=== PATIENT | male | born 1945 | race Caucasian/White ===

== ENCOUNTER 2016-05-28 23:54 | Emergency (ER) | payer MEDICARE ==
[2016-05-29] MEDS ORDERED: HYDROcodone/ACETAMIN 5-325 MG* 1 TAB PO ONE (01:58)
[2016-05-29 03:35] VITALS: BP 133/79
--- NOTE | 2016-05-29 07:56 | ED ---
Skin Complaint - HPI Summary HPI Summary: Patient arrives to ED with concern over hemorrhoids and strange blue line midline in between his scrotal sac. He first noticed it today, became concerned , and came into ED immediately. He is complaining of pain around the anus and has a history of internal and external hemorrhoids. He states today he used a suppository and checked for moles d/t skin CA history. As he was examining his scrotum, he noticed the blue line which was not painful or raised and also erythema around the anus. He states he was unable to see if there were any hemorrhoids, but feels there is a tear. He states he was concerned with a blood poisoning. He is also c/o pain not well controlled with his topical medication. He uses dulcolax daily and is trying to increase his fiber intake. He endorses minimal blood upon wiping. - History of Current Complaint Chief Complaint: EDRectalPain Time Seen by Provider: 05/29/16 01:57 Stated Complaint: RECTAL PAIN Hx Obtained From: Patient Onset/Duration: Started Hours Ago Timing: Constant Onset Severity: Mild Current Severity: Mild Pain Intensity: 5 Pain Scale Used: 0-10 Numeric Skin Location: Discrete - anal region Aggravating Symptom(s): Nothing Alleviating Symptom(s): Other: - anosol cream Associated Signs & Symptoms: Bruising - small blue line extending from scrotum to anus Related History: Extremes of Age - Allergy/Home Medications Allergies/Adverse Reactions: Allergies Allergy/AdvReac Type Severity Reaction Status Date / Time Doxycycline Allergy Headache Verified 01/21/16 14:42 Penicillins Allergy Anaphylatic Verified 01/21/16 14:42 Shock PMH/Surg Hx/FS Hx/Imm Hx Previously Healthy: Yes Endocrine/Hematology History: Denies: Hx Diabetes Cardiovascular History: Reports: Hx Hypertension Denies: Hx Pacemaker/ICD GI History: Reports: Hx Gastroesophageal Reflux Disease History: Reports: Hx Benign Prostatic Hyperplasia Denies: Hx Renal Disease Musculoskeletal History: Reports: Hx Arthritis, Hx Rheumatoid Arthritis Sensory History: Reports: Hx Contacts or Glasses, Hx Hearing Problem Denies: Hx Hearing Aid Opthamlomology History: Reports: Hx Contacts or Glasses Psychiatric History: Reports: Hx Panic Disorder - Surgical History Surgery Procedure, Year, and Place: CHOLECYSTECTOMY. 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 Substance Use Type: Reports: None Hx Tobacco Use: No Smoking Status (MU): Never Smoked Tobacco Review of Systems Constitutional: Negative Cardiovascular: Negative Respiratory: Negative Positive: no symptoms reported, see HPI Musculoskeletal: Negative Positive: Bruising - anus Neurological: Negative Psychological: Normal All Other Systems Reviewed And Are Negative: Yes Physical Exam Triage Information Reviewed: Yes Vital Signs On Initial Exam: Initial Vitals Temp Pulse Resp BP Pulse Ox 98.4 F 81 18 125/86 97 05/29/16 00:04 05/29/16 00:04 05/29/16 00:04 05/29/16 00:04 05/29/16 00:04 Vital Signs Reviewed: Yes Appearance: Positive: Well-Appearing, Well-Nourished Skin: Positive: Warm, Skin Color Reflects Adequate Perfusion Head/Face: Positive: Normal Head/Face Inspection Eyes: Positive: EOMI, NAIN, Conjunctiva Clear Neck: Positive: Supple, Nontender Respiratory/Lung Sounds: Positive: Clear to Auscultation, Breath Sounds Present Cardiovascular: Positive: Normal, RRR Male Genital Exam: Positive: normal genitalia, lesions, other - no scrotal tenderness, no tenderness around anus, no external hemorrhoids, slight erythema around anus, no warmth or streaking or tenderness. thin blue streak from mid scrotal sac extending to anus without pain resembling a vein. no varicoceles. no hernia appreciated. normal rectal tone. no lesions or fissures noted. Musculoskeletal: Positive: Normal, Strength/ROM Intact Neurological: Positive: Sensory/Motor Intact, Speech Normal Psychiatric: Positive: Normal AVPU Assessment: Alert Diagnostics - Vital Signs Vital Signs Temp Pulse Resp BP Pulse Ox 05/29/16 02:20 68 16 133/79 05/29/16 00:04 98.4 F 81 18 125/86 97 - Laboratory Lab Statement: Any lab studies that have been ordered have been reviewed, and results considered in the medical decision making process. Course/Dx - Course Course Of Treatment: Patient reassured. No external hemorrhoids seen. Will follow up with PCP. No fever. Pain is localized to anus with no scrotum or penis involvement. Patient agrees with plan to follow up and is OK with discharge stating he just wanted reassurance he did not have anything more serious such as blood poisoning. Patient is afebrile on discharge. Prescription for pain medication sent to pharmacy. - Differential Diagnoses - Skin Complaint Differential Diagnoses: Abscess, Cellulitis, Contact Dermatitis, Other - hemorrhoids - Diagnoses Provider Diagnoses: Hemorrhoid Discharge - Discharge Plan Condition: Stable Disposition: HOME Prescriptions: HYDROcodone/ACETAMIN 5-325 MG* [[place] 5-325 TAB*] 2 tab PO Q6H PRN #20 tab MDD 4 PRN Reason: Pain Patient Education Materials: Hemorrhoids (ED) Referrals: Joel Marcial MD [Primary Care Provider] - Additional Instructions: Follow up with Dr. Marcial. Call office tomorrow. No visible hemorrhoids were visualized on exam If you are feeling more constipated than usual despite the dulcolax, you may try miralax. Drink plenty of water Do not strain as you have a bowel movement Add more fiber to your diet. Continue with the steroid and hemorrhoid cream daily. Ibuprofen 600mg three times daily for pain. For pain not well controlled with ibuprofen, you may use the hydrocodone. Sitz baths (sitting in warm water) will help with discomfort.
== END 2016-05-29 02:15 | disposition home or self-care (01) ==
LOC: ED 23:54
DX: K64.9 Unspecified hemorrhoids (principal); K62.89 Other specified diseases of anus and rectum
CPT/HCPCS: 99282

== ENCOUNTER 2016-08-05 21:36 | Emergency (ER) | payer MEDICARE ==
[2016-08-05] MEDS ORDERED: Levofloxacin TAB* 250 MG PO ONE (23:51)
[2016-08-05] MEDS ORDERED: Acetaminophen TAB* 325 MG PO ONE (23:51)
[2016-08-06 00:11] LABS: Hematocrit 42 % (42-52); Hemoglobin 14.5 g/dl (14.0-18.0); Mean Corpuscular HGB Conc 35 g/dl (31-36); Mean Corpuscular Hemoglobin 30 pg (27-31); Mean Corpuscular Volume 88 fL (80-94); Mean Platelet Volume 7 um3 (7.4-10.4); Red Blood Count 4.78 10^6/ul (4.0-5.4); Red Cell Distribution Width 13 % (10.5-15); White Blood Count 7.9 10^3/ul (3.5-10.8)
[2016-08-06 00:19] LABS: Albumin 3.6 g/dL (3.2-5.2); BUN/Creatinine Ratio 14.3 (8-20); Calcium 8.1 mg/dL (8.6-10.3); EGFR African American 97.5 (>60); EGFR Non-African American 75.8 (>60); Globulin 2.4 g/dL (2-4); Potassium 3.1 mmol/L (3.5-5.0)
[2016-08-06] MEDS ORDERED: Potassium Chlor TAB* 20 MEQ TAB.ER PO ONE (00:26)
--- NOTE | 2016-08-06 01:00 | ED ---
Apryl Wilder Alok, scribed for Tiffanie Ruiz MD on 08/05/16 at 2327 . Throat Pain/Nasal Congestion - HPI Summary HPI Summary: 71M presents to the ED with sinus pressure and nasal pain for the past few days. Pt states his nasal pain is worse on the right nare. Pt notes epistaxis 3 days ago. Pt notes a right sided head ache and right ear pain. Pt notes subjective fever yesterday for which he took ibuprofen. Pt also notes CP lasting at 1830 which lasted 30 minutes. PMHx includes HTN. - History of Current Complaint Chief Complaint: EDGeneral Time Seen by Provider: 08/05/16 22:46 Hx Obtained From: Patient Onset/Duration: Lasting Days, Still Present Severity: Moderate Associated Signs And Symptoms: Positive: Sinus Discomfort Cough: None - Allergies/Home Medications Allergies/Adverse Reactions: Allergies Allergy/AdvReac Type Severity Reaction Status Date / Time Doxycycline Allergy Headache Verified 08/05/16 21:49 Penicillins Allergy Anaphylatic Verified 08/05/16 21:49 Shock PMH/Surg Hx/FS Hx/Imm Hx Endocrine/Hematology History: Denies: Hx Diabetes Cardiovascular History: Reports: Hx Hypertension Denies: Hx Pacemaker/ICD GI History: Reports: Hx Gastroesophageal Reflux Disease History: Reports: Hx Benign Prostatic Hyperplasia Denies: Hx Renal Disease Musculoskeletal History: Reports: Hx Arthritis, Hx Rheumatoid Arthritis Sensory History: Reports: Hx Contacts or Glasses, Hx Hearing Problem Denies: Hx Hearing Aid Opthamlomology History: Reports: Hx Contacts or Glasses Psychiatric History: Reports: Hx Panic Disorder - Surgical History Surgery Procedure, Year, and Place: CHOLECYSTECTOMY. FATTY TUMORS REMOVED Hx Anesthesia Reactions: No Infectious Disease History: No Infectious Disease History: Denies: Traveled Outside the [place] in Last 30 Days - Family History Known Family History: Positive: Cardiac Disease - Social History Occupation: Retired Alcohol Use: None Alcohol Amount: RECOVERING ALCOHOLIC , NO DRINK IN 20 YEARS Substance Use Type: Reports: None Hx Tobacco Use: No Smoking Status (MU): Never Smoked Tobacco Review of Systems Positive: Fever - subjective Positive: Epistaxis, Ear Ache, Other - sinus pressure Positive: Chest Pain Positive: Headache All Other Systems Reviewed And Are Negative: Yes Physical Exam Triage Information Reviewed: Yes Vital Signs On Initial Exam: Initial Vitals Temp Pulse Resp BP Pulse Ox 97.9 F 63 16 168/79 99 08/05/16 21:40 08/05/16 21:40 08/05/16 21:40 08/05/16 21:40 08/05/16 21:40 Vital Signs Reviewed: Yes Appearance: Positive: Well-Appearing, No Pain Distress Skin: Positive: Warm, Skin Color Reflects Adequate Perfusion, Dry Eyes: Positive: EOMI, NAIN ENT: Positive: Other - Red turbinates inside nare Neck: Positive: Supple, Nontender Respiratory/Lung Sounds: Positive: Clear to Auscultation, Breath Sounds Present. Negative: Rales, Rhonchi, Wheezes Cardiovascular: Positive: RRR, Other - no gallop. Negative: Murmur, Rub Abdomen Description: Positive: Nontender, Soft, Other: - no rebound. Negative: Distended, Guarding Bowel Sounds: Positive: Present Musculoskeletal: Positive: Strength/ROM Intact. Negative: Edema Left, Edema Right Neurological: Positive: Sensory/Motor Intact, Alert, Oriented to Person Place, Time, CN Intact II-III Psychiatric: Positive: Affect/Mood Appropriate Diagnostics - Vital Signs Vital Signs Temp Pulse Resp BP Pulse Ox 08/05/16 22:49 97.1 F 65 16 136/81 97 08/05/16 21:40 97.9 F 63 16 168/79 99 - Laboratory Lab Results: Lab Results 08/05/16 08/05/16 08/05/16 Range/Units 23:55 23:55 23:55 WBC 7.9 (3.5-10.8) 10^3/ul RBC 4.78 (4.0-5.4) 10^6/ul Hgb 14.5 (14.0-18.0) g/dl Hct 42 (42-52) % MCV 88 (80-94) fL MCH 30 (27-31) pg MCHC 35 (31-36) g/dl RDW 13 (10.5-15) % Plt Count 187 (150-450) 10^3/ul MPV 7 L (7.4-10.4) um3 Neut % (Auto) 64.9 (38-83) % Lymph % (Auto) 26.0 (25-47) % Ponce % (Auto) 4.3 (1-9) % Eos % (Auto) 2.5 (0-6) % Baso % (Auto) 2.3 H (0-2) % Absolute Neuts (auto) 5.1 (1.5-7.7) 10^3/ul Absolute Lymphs (auto) 2.1 (1.0-4.8) 10^3/ul Absolute Monos (auto) 0.3 (0-0.8) 10^3/ul Absolute Eos (auto) 0.2 (0-0.6) 10^3/ul Absolute Basos (auto) 0.2 (0-0.2) 10^3/ul Absolute Nucleated RBC 0.01 10^3/ul Nucleated RBC % 0.1 Sodium 137 (133-145) mmol/L Potassium 3.1 L (3.5-5.0) mmol/L Chloride 108 (101-111) mmol/L Carbon Dioxide 21 L (22-32) mmol/L Anion Gap 8 (2-11) mmol/L BUN 14 (6-24) mg/dL Creatinine 0.98 (0.67-1.17) mg/dL Est GFR ( Amer) 97.5 (>60) Est GFR (Non-Af Amer) 75.8 (>60) BUN/Creatinine Ratio 14.3 (8-20) Glucose 100 (70-100) mg/dL Lactic Acid 1.0 (0.5-2.0) mmol/L Calcium 8.1 L (8.6-10.3) mg/dL Total Bilirubin 1.00 (0.2-1.0) mg/dL AST 19 (13-39) U/L ALT 14 (7-52) U/L Alkaline Phosphatase 41 (34-104) U/L Troponin I 0.00 (<0.04) ng/mL Total Protein 6.0 L (6.4-8.9) g/dL Albumin 3.6 (3.2-5.2) g/dL Globulin 2.4 (2-4) g/dL Albumin/Globulin Ratio 1.5 (1-3) Result Diagrams: 08/05/16 23:55 08/05/16 23:55 Lab Statement: Any lab studies that have been ordered have been reviewed, and results considered in the medical decision making process. - Radiology CXR Xray Interpretation: No Acute Changes Radiology Interpretation Completed By: ED Physician - Dr. Ruiz - EKG 3490 Cardiac Rate: NL - 56 bpm EKG Rhythm: Sinus Rhythm EKG Interpretation: inferior Q-waves EENT Course/Dx - Course Course Of Treatment: very sweet 71 yo male who describes nasal drainage that was b/l but stopped on the right after he had a mild bloody nose a few days ago , he dose have sinus tenderness. He is being treated with levaquin for this given his allergies to penicllins and doxy. He also complained of cp that started at 5pm and lasted 30 mins with a normal ekg and normal trop no cp here. - Diagnoses Provider Diagnoses: Chest pain, Sinusitis Discharge - Discharge Plan Condition: Stable Disposition: HOME Prescriptions: Levofloxacin TAB* [Levaquin TAB*] 750 mg PO DAILY #9 tab Patient Education Materials: Chest Pain (ED), Sinusitis (ED) Referrals: Joel Marcial MD [Primary Care Provider] - The documentation as recorded by the Apryl huitron Alok accurately reflects the service I personally performed and the decisions made by me, Tiffanie Ruiz MD.
[2016-08-06 01:34] VITALS: BP 140/80
== END 2016-08-06 01:34 | disposition home or self-care (01) ==
LOC: ED 21:36
DX: J32.9 Chronic sinusitis, unspecified (principal); R07.89 Other chest pain; I10 Essential (primary) hypertension; K21.9 Gastro-esophageal reflux disease without esophagitis; N40.0 Benign prostatic hyperplasia without lower urinary tract symptoms; M06.9 Rheumatoid arthritis, unspecified; Z90.49 Acquired absence of other specified parts of digestive tract; Z88.0 Allergy status to penicillin; Z88.1 Allergy status to other antibiotic agents
CPT/HCPCS: 36415; 80053; 83605; 84484; 85025; 93005; 99282; A9270-GY

== ENCOUNTER 2017-04-22 16:17 | Emergency (ER) | payer MEDICARE ==
[2017-04-22 18:16] LABS: Urine Appearance Clear; Urine Blood 2+ (Negative); Urine Color Straw; Urine Ketones Negative (Negative); Urine Protein Negative (Negative); Urine Specific Gravity 1.002 (1.010-1.030); Urine Urobilinogen Negative (Negative)
--- NOTE | 2017-04-22 19:06 | RAD ---
INDICATION: Right testicular pain. History of right-sided hernia COMPARISON: Testicular sonogram April 01, 2012 TECHNIQUE: Duplex interrogation of the scrotum was performed. FINDINGS: Testicles: The testicles are Normal in size and echogenicity. There is no evidence of testicular mass. There is symmetric flow on Doppler interrogation. There is no evidence of torsion.. The right testis measures 4.3 x 1.8 x 3.7 cm and the left 4.9 x 1.9 x 2.8 cm. There is symmetric flow on Doppler interrogation. Epididymides: There is symmetric flow on Doppler interrogation. The right epididymal head measures 1.2 x 2.0 cm and the left 1.1 x 1.8 cm. There is a right-sided epididymal cyst measuring 1.0 x 0.6 x 1.1 cm. There are 2 left-sided epididymal cyst measuring 0.5 x 0.5 x 0.7 and 0.5 x 0.5 x 0.8 cm Hydroceles: None. Varicoceles: There are left-sided varicoceles. Other: There is right inguinal hernia. IMPRESSION: 1. No evidence of testicular mass or torsion. 2. Bilateral epididymal cysts. 3. Left-sided varicoceles. 4. Right inguinal hernia
--- NOTE | 2017-04-22 19:25 | ED ---
My Wilder Gabriel, scribesther for Katrina Storm MD on 04/22/17 at 1843 . GI/ HPI - HPI Summary HPI Summary: This patient is a 72 year old M presenting to [facility] with a chief complaint of an inguinal hernia that was discovered 2 weeks ago but is worse since yesterday. The patient rates the pain 6/10 in severity. Symptoms alleviated by lying down. Patient reports PRIETO, pain and prickling in the groin. Patient denies vomiting. Pt had a recent prostate infection and hx of BPH. - History of Current Complaint Chief Complaint: EDUrogenitalProblems Time Seen by Provider: 04/22/17 18:02 Stated Complaint: RT SIDE GROIN PAIN Hx Obtained From: Patient Onset/Duration: Started Weeks Ago - 2, Still Present, Worse Since - yesterday Timing: Constant Severity: Moderate Current Severity: Moderate Pain Intensity: 6 Location of Pain: Groin Additional Locations for Males: Scrotum, Testicles - right Associated Signs and Symptoms: Positive: Negative - vomiting, Other: - PRIETO and pain in groin - Allergy/Home Medications Allergies/Adverse Reactions: Allergies Allergy/AdvReac Type Severity Reaction Status Date / Time MS Doxycycline [Doxycycline] Allergy Headache Verified 08/05/16 21:49 MS Penicillins [Penicillins] Allergy Anaphylatic Verified 08/05/16 21:49 Shock PMH/Surg Hx/FS Hx/Imm Hx Endocrine/Hematology History: Denies: Hx Diabetes Cardiovascular History: Reports: Hx Hypertension Denies: Hx Pacemaker/ICD GI History: Reports: Hx Gastroesophageal Reflux Disease History: Reports: Hx Benign Prostatic Hyperplasia Denies: Hx Renal Disease Musculoskeletal History: Reports: Hx Arthritis, Hx Rheumatoid Arthritis Sensory History: Reports: Hx Contacts or Glasses, Hx Hearing Problem Denies: Hx Hearing Aid Opthamlomology History: Reports: Hx Contacts or Glasses Psychiatric History: Reports: Hx Panic Disorder - Surgical History Surgery Procedure, Year, and Place: CHOLECYSTECTOMY. 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 Substance Use Type: Reports: None Hx Tobacco Use: No Smoking Status (MU): Never Smoked Tobacco Review of Systems Negative: Fever Negative: Vomiting Positive: other - pain and prickling in the groin Positive: Headache All Other Systems Reviewed And Are Negative: Yes Physical Exam - Summary Physical Exam Summary: VITAL SIGNS: Reviewed. GENERAL: Patient is a well-developed and nourished (MALE OR FEMALE) who is lying comfortable in the stretcher. Patient is not in any acute respiratory distress. HEAD AND FACE: No signs of trauma. No ecchymosis, hematomas or skull depressions. No sinus tenderness. EYES: PERRLA, EOMI x 2, No injected conjunctiva, no nystagmus. EARS: Hearing grossly intact. Ear canals and tympanic membranes are within normal limits. MOUTH: Oropharynx within normal limits. NECK: Supple, trachea is midline, no adenopathy, no JVD, no carotid bruit, no c- spine tenderness, neck with full ROM. CHEST: Symmetric, no tenderness at palpation LUNGS: Clear to auscultation bilaterally. No wheezing or crackles. CVS: Regular rate and rhythm, S1 and S2 present, no murmurs or gallops appreciated. ABDOMEN: Soft, non-tender. No signs of distention. No rebound no guarding, and no masses palpated. Bowel sounds are normal. EXTREMITIES: FROM in all major joints, no edema, no cyanosis or clubbing. NEURO: Alert and oriented x 3. No acute neurological deficits. Speech is normal and follows commands. SKIN: Dry and warm : Right inguinal hernia that is reducible and non painful Triage Information Reviewed: Yes Vital Signs On Initial Exam: Initial Vitals Temp Pulse Resp BP Pulse Ox 97.6 F 84 18 139/93 95 04/22/17 16:19 04/22/17 16:19 04/22/17 16:19 04/22/17 16:19 04/22/17 16:19 Vital Signs Reviewed: Yes Diagnostics - Vital Signs Vital Signs Temp Pulse Resp BP Pulse Ox 04/22/17 16:19 97.6 F 84 18 139/93 95 - Laboratory Lab Results: Lab Results 04/22/17 Range/Units 17:43 Urine Color Straw Urine Appearance Clear Urine pH 6.0 (5-9) Ur Specific [place] 1.002 L (1.010-1.030) Urine Protein Negative (Negative) Urine Ketones Negative (Negative) Urine Blood 2+ H (Negative) Urine Nitrate Negative (Negative) Urine Bilirubin Negative (Negative) Urine Urobilinogen Negative (Negative) Ur Leukocyte Esterase Negative (Negative) Urine WBC (Auto) Absent (Absent) Urine RBC (Auto) Trace(0-2/hpf) (Absent) Urine Bacteria Absent (Absent) Urine Glucose Negative (Negative) Lab Statement: Any lab studies that have been ordered have been reviewed, and results considered in the medical decision making process. - Additional Comments Diagnostic Additional Comments: Testicular US reveals, per radiologist, 1. No evidence of testicular mass or torsion. 2. Bilateral epididymal cysts. 3. Left-sided varicoceles. 4. Right inguinal hernia ED physician has reviewed this radiology report. Re-Evaluation - Re-Evaluation First Eval Re-Evaluation Time: 19:19 Change: Improved Comment: Pt feels better and has agreed to follow up with the surgeon. GIGU Course/Dx - Course Assessment/Plan: This patient is a 72 year old M presenting to [facility] with a chief complaint of an inguinal hernia that was discovered 2 weeks ago but is worse since yesterday. The patient rates the pain 6/10 in severity. Symptoms alleviated by lying down. Patient reports PRIETO, pain and prickling in the groin. Patient denies vomiting. Pt had a recent prostate infection and hx of BPH. . Testicular US reveals, per radiologist, 1. No evidence of testicular mass or torsion. 2. Bilateral epididymal cysts. 3. Left-sided varicoceles. 4. Right inguinal hernia. Test results with no significant abnormalities. UA was obtained. Patient will be discharged and follow up from his surgeon. The patient is agreeable with this plan. - Diagnoses Provider Diagnoses: Reducible right inguinal hernia Discharge - Discharge Plan Condition: Stable Disposition: HOME Referrals: Joel Marcial MD [Primary Care Provider] - 4 Days Additional Instructions: Keep your appointment with the surgeon. RETURN TO EMERGENCY DEPARTMENT FOR ANY NEW OR WORSENING SYMPTOMS The documentation as recorded by the yM huitron Gabriel accurately reflects the service I personally performed and the decisions made by me, Katrina Storm MD.
[2017-04-22 20:03] VITALS: BP 141/82
== END 2017-04-22 20:02 | disposition home or self-care (01) ==
LOC: ED 16:17
DX: K40.90 Unilateral inguinal hernia, without obstruction or gangrene, not specified as recurrent (principal); N50.3 Cyst of epididymis; I86.1 Scrotal varices; Z88.3 Allergy status to other anti-infective agents; Z88.0 Allergy status to penicillin
CPT/HCPCS: 76870; 81003; 81015; 99283

== ENCOUNTER 2018-08-12 10:40 | Emergency (ER) | payer MEDICARE ==
--- NOTE | 2018-08-12 11:01 | ED ---
Complex/Multi-Sys Presentation - HPI Summary HPI Summary: 73 year old M brought in by [place] [facility] to [facility] with a chief complaint of nausea and dizziness since one week ago, worse since last night and this morning. The patient rates the pain 0/10 in severity. Symptoms aggravated by nothing. Symptoms alleviated by nothing. Patient reports unsteady gait, loss of appetite, and lightheadedness. Last week, patient noted that there were fumes coming out of his shower drain that was making him feel nauseous. Patient notified the maintenance in his apartment building who fixed his drain but patient states that fumes are still coming out and making him feel sick. Last night, patient took a shower and got sick again. This morning, patient went to use the bathroom and smelled the fumes which made him feel sick again. Patient states that putting the plug in the drain and putting tape over the plug to block the fumes make his symptoms go away. - History Of Current Complaint Chief Complaint: EDDizziness Time Seen by Provider: 08/12/18 10:51 Hx Obtained From: Patient Onset/Duration: Lasting Weeks - 1, Still Present, Worse Since - last night and this morning Timing: Intermittent, Lasting: Severity Currently: None Aggravating Factor(s): Nothing Alleviating Factor(s): Nothing Associated Signs And Symptoms: Positive: Other - unsteady gait, loss of appetite , and lightheadedness - Allergies/Home Medications Allergies/Adverse Reactions: Allergies Allergy/AdvReac Type Severity Reaction Status Date / Time doxycycline Allergy Severe Headache Verified 08/12/18 10:45 Penicillins Allergy Severe Anaphylatic Verified 08/12/18 10:45 Shock Home Medications: Home Medications Famciclovir 500 mg PO TID PRN 08/12/18 [History Confirmed 08/12/18] PMH/Surg Hx/FS Hx/Imm Hx Previously Healthy: No Endocrine/Hematology History: Denies: Hx Diabetes Cardiovascular History: Reports: Hx Hypertension Denies: Hx Pacemaker/ICD GI History: Reports: Hx Gastroesophageal Reflux Disease History: Reports: Hx Benign Prostatic Hyperplasia Denies: Hx Renal Disease Musculoskeletal History: Reports: Hx Arthritis, Hx Rheumatoid Arthritis Sensory History: Reports: Hx Contacts or Glasses, Hx Hearing Problem Denies: Hx Hearing Aid Opthamlomology History: Reports: Hx Contacts or Glasses Psychiatric History: Reports: Hx Panic Disorder - Surgical History Surgery Procedure, Year, and Place: CHOLECYSTECTOMY. 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 Hx Substance Use: No Substance Use Type: Reports: None Hx Tobacco Use: No Smoking Status (MU): Never Smoked Tobacco Review of Systems Positive: Nausea, Other - loss of appetite Neurological: Other - Dizziness, lightheadedness, unsteady gait All Other Systems Reviewed And Are Negative: Yes Physical Exam - Summary Physical Exam Summary: Appearance: Well-appearing, Well-nourished, lying in bed comfortably Skin: Warm, dry, no obvious rash Eyes: sclera anicteric, no conjunctival pallor ENT: mucous membranes moist, pharynx appears normal Neck: Supple, nontender Respiratory: Clear to auscultation, no signs of respiratory distress Cardiovascular: Normal S1, S2. No murmurs. Normal distal pulses in tibial and radial bilaterally. Abdomen: Soft, nontender, normal active bowel sounds present Musculoskeletal: Normal, Strength/ROM Intact Neurological: A&Ox3, awake and alert, mentation is normal, speech is fluent and appropriate Psychiatric: affect is normal, does not appear anxious or depressed Triage Information Reviewed: Yes Vital Signs On Initial Exam: Initial Vitals Temp Pulse Resp BP Pulse Ox 97.8 F 81 17 174/83 98 08/12/18 10:43 08/12/18 10:43 08/12/18 10:43 08/12/18 10:43 08/12/18 10:43 Vital Signs Reviewed: Yes Diagnostics - Vital Signs Vital Signs Temp Pulse Resp BP Pulse Ox 08/12/18 10:43 97.8 F 81 17 174/83 98 - Laboratory Result Diagrams: 08/12/18 11:58 08/12/18 11:58 Lab Statement: Any lab studies that have been ordered have been reviewed, and results considered in the medical decision making process. - Radiology CXR Radiology Interpretation Completed By: Radiologist Summary of Radiographic Findings: NO ACTIVE CARDIOPULMONARY DISEASE. ED physician has reviewed this report. - EKG 1237 Cardiac Rate: NL - 65 BPM EKG Rhythm: Sinus Rhythm Summary of EKG Findings: NSR at 65 BPM, P waves, QRS complex, and T waves are within normal limits, T waves and intervals are normal, no ischemic changes. This is a normal EKG. Re-Evaluation - Re-Evaluation First Eval Re-Evaluation Time: 15:59 Comment: Patient given update on plan of care Complex Multi-Symp Course/Dx Course Of Treatment: 73 year old M brought in by [place] ambulance to [facility] with a chief complaint of nausea, dizziness, lightheadedness since one week ago, worse since last night and this morning. Last week, patient noted that there were fumes coming out of his shower drain that was making him feel nauseous. Patient notified the maintenance in his apartment building who fixed his drain but patient states that fumes are still coming out and making him feel sick. Last night, patient took a shower and got sick again. This morning, patient went to use the bathroom and smelled the fumes which made him feel sick again. Patient states that putting the plug in the drain and putting tape over the plug to block the fumes make his symptoms go away. An EKG reveals NSR at 65 BPM , P waves, QRS complex, and T waves are within normal limits, T waves and intervals are normal, no ischemic changes. The patient has a normal EKG. CXR reveals, per radiologist, NO ACTIVE CARDIOPULMONARY DISEASE. Test results with no significant abnormalities except for glucose 142 and MCH 32. UAs showed Blood 1+, RBC 2+. Patient will be discharged with follow up from Dr. Marcial, his primary care provider. Patient was advised to get the plumbing issue in his home fixed, and to stay out of the house as much as possible as the problem is resolved. The patient is agreeable with this plan. - Diagnoses Provider Diagnoses: Lightheadedness Discharge - Sign-Out/Discharge Documenting (check all that apply): Patient Departure - Discharge Patient Received Moderate/Deep Sedation with Procedure: No - Discharge Plan Condition: Good Disposition: HOME Patient Education Materials: Lightheadedness (ED) Referrals: Joel Marcial MD [Primary Care Provider] - Additional Instructions: Your history of symptoms occurring only in the home would certainly be consistent with a toxic exposure related to the plumbing, but I am not an expert on that. However, a thorough investigation should be done by your landlord given your symptoms. The blood tests and chest xray we did did not show any abnormalities, but this does not rule out the possibility that your symptoms are related to an environmental problem in your home. I would recommend that if at all possible you do not stay there until the issue has been resolved, but if you must temporizing as you described is certainly reasonable. - Billing Disposition and Condition Condition: GOOD Disposition: Home - Attestation Statements Document Initiated by Yfn: Yes Documenting Scribe: Martha White Provider For Whom Yfn is Documenting (Include Credential): Louie Coyle MD Scribe Attestation: I, Martha White, scribed for Louie Coyle MD on 08/12/18 at 2204. Scribe Documentation Reviewed: Yes Provider Attestation: The documentation as recorded by the Martha huitron accurately reflects the service I personally performed and the decisions made by me, Louie Coyle MD Status of Scribe Document: Viewed
[2018-08-12 12:09] LABS: ABS Lymphocytes 1.6 10^3/ul (1.0-4.8); ABS Monocytes 0.4 10^3/ul (0-0.8); ABS Neutrophils 4.8 10^3/ul (1.5-7.7); Eosinophil % 0.6 %; Hematocrit 45 % (42-52); Hemoglobin 16.1 g/dL (14.0-18.0); Lymphocyte % 23.7 %; Mean Corpuscular HGB Conc 36 g/dL (31-36); Mean Corpuscular Hemoglobin 32 pg (27-31); Mean Corpuscular Volume 89 fL (80-94); Mean Platelet Volume 7.6 fL (7.4-10.4); Platelet Count 198 10^3/uL (150-450); Red Blood Count 5.06 10^6 /uL (4.18-5.48); Red Cell Distribution Width 13 % (10-15)
[2018-08-12 12:22] LABS: Albumin 4.4 g/dL (3.2-5.2); Albumin/Globulin Ratio 1.4 (1-3); BUN/Creatinine Ratio 12.4 (8-20); C Reactive Protein 1.24 mg/L (<8.01); Calcium 9.5 mg/dL (8.6-10.3); EGFR African American 84.2 (>60); EGFR Non-African American 69.6 (>60); Globulin 3.2 g/dL (2-4); Potassium 4.1 mmol/L (3.5-5.0); Total Bilirubin 0.9 mg/dL (0.2-1.0); Total Protein 7.6 g/dL (6.4-8.9)
[2018-08-12 14:26] LABS: Urine Appearance Clear; Urine Bacteria Absent (Absent); Urine Bilirubin Negative (Negative); Urine Blood 1+ (Negative); Urine Color Yellow; Urine Glucose Negative (Negative); Urine Ketones Negative (Negative); Urine Nitrite Negative (Negative); Urine Protein Negative (Negative); Urine Red Blood Cell 2+(6-10/hpf) (Absent); Urine Specific Gravity 1.008 (1.010-1.030); Urine Urobilinogen Negative (Negative); Urine White Blood Cell Absent (Absent)
[2018-08-12] MEDS ORDERED: Ondansetron INJ* 2 MG/ML VIAL IV ONE (16:03)
[2018-08-12] MEDS ORDERED: NS 0.9% 1000 ML** 2,000 ML IV ONE (16:03)
[2018-08-12 18:07] VITALS: BP 144/73
== END 2018-08-12 18:06 | disposition home or self-care (01) ==
LOC: ED 10:40
DX: R42 Dizziness and giddiness (principal); R11.0 Nausea; R26.81 Unsteadiness on feet; Z88.1 Allergy status to other antibiotic agents; Z88.0 Allergy status to penicillin
CPT/HCPCS: 36415; 71046; 80053; 81003; 81015; 83605; 84484; 85025; 86140; 93005; 96361; 96374; 99284; J2405

== ENCOUNTER 2019-05-29 09:32 | Emergency (ER) | payer MEDICARE ==
--- NOTE | 2019-05-29 09:37 | UC ---
Throat Pain/Nasal Gary HPI - HPI Summary HPI Summary: 74 yo male presents with sore mouth. He tells me that he finished an antibiotic about a week ago for a sinus infection. Was also using flonase. Since that time he has noticed progressing white/greenish coating to his tongue with sore throat , sore tongue, and bad taste in his mouth. He has had thrush in the past and this feels the same. He denies fever, chills, diabetes, or immunocompromised status. No cough, SOB, or difficulty breathing. - History of Current Complaint Stated Complaint: SORE MOUTH Time Seen by Provider: 05/29/19 09:35 Hx Obtained From: Patient Onset/Duration: Gradual Onset Severity: Moderate Pain Intensity: 7 Pain Scale Used: 0-10 Numeric - Allergies/Home Medications Allergies/Adverse Reactions: Allergies Allergy/AdvReac Type Severity Reaction Status Date / Time doxycycline Allergy Severe Headache Verified 08/12/18 10:45 Penicillins Allergy Severe Anaphylatic Verified 08/12/18 10:45 Shock Home Medications: Home Medications Doxazosin XL (NF) [Cardura XL (NF)] 8 mg PO QPM 04/01/12 [History Confirmed ] Metoprolol Tartrate TAB* [Lopressor TAB*] 50 mg PO BID 04/01/12 [History Confirmed 08/12/18] Alfuzosin HCl [Alfuzosin HCl ER] 10 mg PO QPM 05/05/17 [History Confirmed ] Clotrimazole/Betamethasone* [Lotrisone Cream*] 1 applic TOPICAL BID PRN [History Confirmed 08/12/18] Cyclobenzaprine TAB* [Flexeril 10 MG TAB*] 10 mg PO TID PRN 05/05/17 [History Confirmed 08/12/18] Docusate CAP* [Colace Cap*] 100 mg PO BID 05/05/17 [History Confirmed 08/12/18] Hydrocortisone SUPP* [Anusol HC Supp*] 25 mg TN Q12H PRN 05/05/17 [History Confirmed 08/12/18] Ibuprofen TAB* [Motrin TAB* 400 MG] 400 mg PO BID PRN 05/05/17 [History Confirmed 08/12/18] Meclizine TAB* [Antivert 12.5 TAB*] 25 mg PO TID PRN 05/05/17 [History Confirmed 08/12/18] One A Day Vitamin For Men Tab 1 tab PO QAM 05/05/17 [History Confirmed 08/12/18] Ranitidine TAB (NF) [Zantac TAB (NF)] 150 mg PO BID PRN 05/05/17 [History Confirmed 08/12/18] Famciclovir 500 mg PO TID PRN 08/12/18 [History Confirmed 08/12/18] Clotrimazole MAGDALENO* [Mycelex Magdaleno*] 10 mg MT SEE INSTRUCTIONS 7 Days #35 magdaleno 05/29/19 [Rx] Fluconazole 100 MG TAB* [Diflucan 100 MG TAB*] 100 mg PO DAILY 7 Days #8 tab [Rx] PMH/Surg Hx/FS Hx/Imm Hx - Additional Past Medical History Additional PMH: CVA BPH Cardiovascular History: Hypertension GI/ History: Gastroesophageal Reflux - Surgical History Surgical History: Yes Surgery Procedure, Year, and Place: CHOLECYSTECTOMY. FATTY TUMORS REMOVED - Family History Known Family History: Positive: Cardiac Disease - Social History Alcohol Use: None Alcohol Amount: RECOVERING ALCOHOLIC , NO DRINK IN 20 YEARS Substance Use Type: None Smoking Status (MU): Never Smoked Tobacco - Immunization History Most Recent Influenza Vaccination: 2MOS Most Recent Tetanus Shot: UNK Most Recent Pneumonia Vaccination: 2MOS Review of Systems All Other Systems Reviewed And Are Negative: No Constitutional: Positive: Negative Skin: Positive: Negative Eyes: Positive: Negative ENT: Positive: Sore Throat Respiratory: Positive: Negative Cardiovascular: Positive: Negative Neurological/Mental Status: Positive: Negative Psychological: Positive: Negative Physical Exam - Summary Physical Exam Summary: GENERAL: NAD. WDWN. No pain distress. SKIN: No rashes, sores, lesions, or open wounds. HEENT: Head: AT/NC Eyes: EOM intact. Conjunctiva clear without inflammation or discharge. Ears: Hearing diminished - baseline. Throat: Tongue and posterior oropharynx with thick white coating with scattered green appearance. Uvula midline. NECK: Supple. Nontender. No lymphadenopathy. CHEST: CTAB. No r/r/w. No accessory muscle use. Breathing comfortably and in no distress. NEURO: Alert. PSYCH: Age appropriate behavior. Triage Information Reviewed: Yes Vital Signs: Vital Signs: Temp Pulse Resp BP Pulse Ox 98.8 F 63 18 160/84 95 05/29/19 10:21 05/29/19 10:21 05/29/19 10:21 05/29/19 10:21 05/29/19 10:21 Vital Signs Reviewed: Yes Throat Pain/Nasal Course/Dx - Course Course Of Treatment: Moderate to severe oropharyngeal thrush. Will rx for diflucan for 7 days as well as troches for 7 days - Differential Dx/Diagnosis Provider Diagnosis: Oral thrush Discharge ED - Sign-Out/Discharge Documenting (check all that apply): Patient Departure All imaging exams completed and their final reports reviewed: No Studies - Discharge Plan Condition: Stable Disposition: HOME Prescriptions: Clotrimazole MAGDALENO* [Mycelex Magdaleno*] 10 mg MT SEE INSTRUCTIONS 7 Days #35 magdaleno Fluconazole 100 MG TAB* [Diflucan 100 MG TAB*] 100 mg PO DAILY 7 Days #8 tab Patient Education Materials: Oral Candidiasis (ED) Referrals: Joel Marcial MD [Primary Care Provider] - Additional Instructions: If you develop a fever, shortness of breath, chest pain, new or worsening symptoms - please call your PCP or go to the ED immediately. - Billing Disposition and Condition Condition: STABLE Disposition: Home
--- OUTSIDE RECORDS SUMMARY | 2019-05-29 09:43 | XMS REPORT | Summary of Care ---
:1945 Author Organization The Address 1 [facility] [place] [address] Care Team Providers Name Role Phone Joel Marcial Primary Care Provider Reason for Visit Reason Comments Sick runny nose, headache, ear pain in both ears, sore throat, burning in throat and top of mouth. Started about a week ago Encounter Details Date Type Department Care Team Description 04/24/2019 Office Visit [facility], Acute bacterial Practice [facility] [place] rhinosinusitis (Primary [address]) [place] [address] [place] [address] [phone] Allergies Active Allergy Reactions Severity Noted Date Comments Doxycycline MEDICAL LABORATORY SCIENTIST Reaction 07/04/2014 Severe pressure in head Penicillin G Potassium 12/08/2007 documented as of this encounter (statuses as of 04/24/2019) Medications Medication Sig Dispensed Refills Start End Status Date Date Multiple Vitamin Take 1 Each by 0 Active (ONE-A-DAY MENS) mouth DAILY. Oral Tab Pramoxine-Zinc Place 1 Appl 1 Tube 5 10/23/19 Active Oxide in MO 1-12.5 per rectum 15 % Rectal Ointment NEEDED (use as directed). cyclobenzaprine Take 0.5-1 21 Tab 0 09/07/19 Active (FLEXERIL) 10 MG Tabs by mouth 17 Oral Tab THREE TIMES DAILY NEEDED for muscle spasm. hydrocortisone INSERT 1 28 Suppository 1 01/08/20 Active (ANUSOL HC) 25 MG SUPPOSITORY 17 Rectal RECTALLY EVERY SupposIndications: 12 HOURS Rectal or anal pain ALFUZOSIN HCL ER PO Take by 0 Active mouth. RA COL-RITE 100 MG take 1 capsule 60 Cap 5 06/07/19 Active Oral Cap by mouth twice 18 a day if needed clotrimazole-betame APPLY TO HEAD 45 g 5 02/14/20 Active thasone (LOTRISONE) OF PENIS TWICE 18 1-0.05 % Apply A DAY externally Cream famciclovir take 1 tablet 21 Tab 8 06/06/19 Active (FAMVIR) 500 MG by mouth three 19 Oral Tab times a day if needed Alfuzosin HCl 10 MG take 1 tablet 90 Tab 4 06/20/19 Active Oral TABLET SR 24 by mouth once 19 HR daily metoprolol take 1 tablet 180 Tab 3 06/20/19 Active (LOPRESSOR) 50 MG by mouth twice 19 Oral Tab a day meclizine TAKE 1 TABLET 90 Tab 0 12/05/19 Active (ANTIVERT) 25 MG BY MOUTH THREE 19 Oral TIMES DAILY TabIndications: NEEDED FOR BPPV (benign DIZZINESS OR paroxysmal VERTIGO positional vertigo), unspecified laterality Doxazosin Mesylate TAKE 1 TABLET 90 Tab 1 12/15/19 Active 8 MG Oral Tab BY MOUTH ONCE 19 DAILY clotrimazole Apply twice 60 g 4 01/13/20 Active (LOTRIMIN) 1 % daily To red 19 Apply externally spots Cream Triamcinolone 1 Appl by 15 g 1 02/24/20 Active Acetonide 0.5 % Apply 19 Apply externally externally CreamIndications: route TWICE Eczema, unspecified DAILY. Apply type twice/ day benzonatate Take 1 Cap by 42 Cap 0 03/16/19 Active (TESSALON PERLES) mouth THREE 20 100 MG Oral TIMES DAILY. CapIndications: Cough ranitidine (ZANTAC) TAKE 1 TABLET 180 Tab 0 03/17/19 Active 150 MG Oral BY MOUTH TWICE 20 TabIndications: DAILY GERD without esophagitis cimetidine TAKE 1 TABLET 180 Tab 0 03/17/19 Active (TAGAMET) 300 MG BY MOUTH TWICE 20 Oral Tab DAILY DOK 100 MG Oral TAKE 1 CAPSULE 30 Cap 3 04/05/19 Active CapIndications: BY MOUTH TWICE 20 Constipation, A DAY unspecified constipation type levofloxacin Take 1 Tab by 7 Tab 0 04/24/19 Active (LEVAQUIN) 750 MG mouth DAILY 20 Oral 0700 on Empty TabIndications: Stomach. Acute bacterial rhinosinusitis levofloxacin Take 1 Tab by 7 Tab 0 02/24/20 Discontinued (LEVAQUIN) 750 MG mouth DAILY 19 020 (Reorder) Oral 0700 on Empty TabIndications: Stomach. Community acquired pneumonia of right lower lobe of lung (HCC) documented as of this encounter (statuses as of 04/24/2019) Active Problems Problem Noted Date Recurrent genital herpes 03/22/2017 Overview: One breakout per year Family history of prostate cancer 11/05/2015 Overview: Brother age 65 Microscopic hematuria 08/07/2010 Overview: Dr Clem Hernandez urology cystoscopy negative and psa blood test normal 05/[address] [facility] Dr Mendoza 2016 Obesity (BMI 30-39.9) 12/08/2007 Overview: 06/27/2006, BMI: 37.34 BMI 35 03/2009 Replaced inactive diagnosis Essential hypertension 12/08/2007 Overview: With left ventricular hypertrophy. GERD (gastroesophageal reflux disease) 12/08/2007 Cervical disc disorder with radiculopathy 12/08/2007 Benign prostatic hyperplasia 12/08/2007 Overview: Dr Clem Hernandez urology appointment [id number] visit 02/05 PSA normal [facility] lab 02/05 Chronic constipation 12/08/2007 Non-cardiac chest pain 12/08/2007 Overview: Chemical nuclear scan in 1999, negative. Normal cardiac cath [facility] 2007. History of Alcohol Abuse 12/08/2007 CTS (carpal tunnel syndrome) 12/08/2007 Overview: S/P release surgery, 1989 Personal history of colonic polyps 12/08/2007 Overview: colonoscopy, 06/24/2005, Dr. Landrum, four adenomas removed, benign. Colonoscopy negative 2008 False positive stress test 12/08/2007 Overview: Thallium stress test in the showed scarring, no ischemia. Positive stress echocardiogram 12/05-inferioro basal ischemia. Cardiac cath [facility] 01/05: no significant CAD. History of Dupuytren Contracture, on Right 12/08/2007 documented as of this encounter (statuses as of 04/24/2019) Resolved Problems Problem Noted Date Resolved Date Palpitations 07/15/2008 03/22/2017 Overview: Holter monitor negative Allergic rhinitis 12/08/2007 03/22/2017 SPECIAL CIRCUMSTANCES 12/08/2007 06/01/2018 Overview: N.B.--Patient does not want daughter informed of anything. documented as of this encounter (statuses as of 04/24/2019) Immunizations Name Administration Dates Next Due H1N1 Injectable Adult 03/05/2009 Influenza (IM) Preservative Free 11/27/2012, 11/26/2011, 12/17/2009, 12/11/2007 Influenza Vaccine 65 Yrs + 11/09/2018 Influenza Vaccine High Dose 11/14/2017, 11/05/2016, 11/05/2015, 10/22/2014 Influenza Vaccine Whole 11/18/2010, 12/21/2008, 02/16/2007 PNEUMOCOCCAL POLYSACCHARIDE VACCINE 03/21/2013 Pneumococcal Conjugate(13 Valent) 03/08/2014 TDAP Vaccine 08/07/2010 documented as of this encounter Social History Tobacco Use Types Packs/Day Years Used Date Former Smoker Cigarettes 0 Smokeless Tobacco: Never Used Alcohol Use Drinks/Week oz/Week Comments No 0 Standard drinks or equivalent 0.0 Has a history of alcoholism Sex Assigned at Date Recorded Not on file documented as of this encounter Last Filed Vital Signs Vital Sign Reading Time Taken Comments Blood Pressure 140/72 04/24/2019 8:37 AM EST Pulse 67 04/24/2019 8:37 AM EST Temperature 38.2 04/24/2019 8:37 AM C (100.8 EST F) Respiratory Rate - - Oxygen Saturation 95% 04/24/2019 8:37 AM EST Inhaled Oxygen Concentration - - Weight 130.2 kg (287 lb) 04/24/2019 8:37 AM EST Height 185.4 cm (6' 1") 04/24/2019 8:37 AM EST Body Mass Index 37.87 04/24/2019 8:37 AM EST documented in this encounter Patient Instructions Patient InstructionsLulú Judge NP - 04/24/2019 8:40 AM EST ?? Levofloxacin 750 mg once daily for 7 days ?? Take Tylenol and Ibuprofen over the counter as needed for pain and symptom relief - Ibuprofen 600mg three times daily. ?? Flonase 2 sprays in each nostril daily ?? Salt water gargles, cough drops, and hot tea with lemon or honey to help soothe your throat. ?? Get plenty of rest and fluids ?? Please call or return if symptoms worsen or fail to improve. You have been prescribed an antibiotic for treatment of your condition. It is important to rememberthat antibiotics treat bacterial infections. In order for them to be effective - you must take ALL of the medication and take it exactly as prescribed. FINISH THE MEDICATION - even if you are feelingbetter. Antibiotics can cause stomach upset and diarrhea. You can help decrease these symptoms by also taking a probiotic while using the medication (Align, Culturelle or the like). Take with food if recommended by the pharmacist. If you are not feeling better in 3-5 days - call or return to the office. Upper Respiratory Infection CREW MESS ATTENDANT: An upper respiratory infection is also called a common cold. It can affect your nose, throat, ears,and sinuses. Common signs and symptoms include the following: Cold symptoms are usually worst for the first 3 to5 days. You may have any of the following: Runny or stuffy nose Sneezing and coughing Sore throat or hoarseness Red, watery, and sore eyes Fatigue Chills and fever Headache, body aches, or sore muscles Seek care immediately if: You have severe headaches, a stiff neck, or eye pain when you look at bright light. You have chest pain or trouble breathing. Contact your healthcare provider if: You have a fever over 102F (39C). Your sore throat gets worse or you see white or yellow spots in your throat. Your symptoms get worse after 3 to 5 days or your cold is not better in 14 days. You have a rash anywhere on your skin. You have large, tender lumps in your neck. You have thick, green or yellow drainage from your nose. You cough up thick yellow, green, martinez, or bloody mucus. You have vomiting for more than 24 hours and cannot keep fluids down. You have a bad earache. You have questions or concerns about your condition or care. Treatment for a cold: There is no cure for the common cold. Colds are caused by viruses and do not get better with antibiotics. Most people get better in 7 to 14 days. You may continue to cough for 2 to 3 weeks. The following may help decrease your symptoms: Decongestants help reduce nasal congestion and help you breathe more easily. If you take decongestant pills, they may make you feel restless or not able to sleep. Do not use decongestant sprays for more than a few days. Cough suppressants help reduce coughing. Ask your healthcare provider which type of cough medicine is best for you. NSAIDs , such as ibuprofen, help decrease swelling, pain, and fever. NSAIDs can cause stomach bleeding or kidney problems in certain people. If you take blood thinner medicine, always ask your healthcare provider if NSAIDs are safe for you. Always read the medicine label and follow directions. Acetaminophen decreases pain and fever. It is available without a doctor' s order. Ask how muchto take and how often to take it. Follow directions. Acetaminophen can cause liver damage if not taken correctly. Manage your cold: Use a humidifier or vaporizer. Use a cool mist humidifier or a vaporizer to increase air moisture in your home. This may make it easier for you to breathe and help decrease your cough. Gargle with warm salt water to help your sore throat feel better. Make salt water by adding teaspoon salt to 1 cup warm water. You may also suck on hard candy or throat lozenges. You may usea sore throat spray. Use saline nasal drops to help relieve your congestion. Drink liquids as directed. Liquids help keep your air passages moist and help you cough up mucus. Ask how much liquid to drink each day and which liquids are best for you. Rest as much as possible. Slowly start to do more each day. Prevent spreading your cold to others: Try to stay away from other people during the first 2 to 3 days of your cold when it is more easily spread. Do not share food or drinks. Do not share hand towels with household members. Wash your hands often, especially after you blow your nose. Turn away from other people and cover your mouth and nose with a tissue when you sneeze or cough. Follow up with your healthcare provider as directed: Write down your questions so you remember to ask them during your visits. 2016 [employer]. Information is for End User's use only and may not be sold, redistributed or otherwise used for commercial purposes. All illustrations and images included in CareNotes are the copyrighted property of [employer] or [employer]. The above information is an food preparation kitchen aide only. It is not intended as medical advice for individual conditions or treatments. Talk to your doctor, nurse or pharmacist before following any medical regimen to see if it is safe and effective for you. documented in this encounter Progress Notes Lulú Judge NP - 04/24/2019 8:40 AM EST PATIENT: Ru Mcgrath : 1945 DATE OF SERVICE: 04/24/2019 CHIEF COMPLAINT: Chief Complaint Patient presents with ? Sick runny nose, headache, ear pain in both ears, sore throat, burning in throat and top of mouth. Started about a week ago Subjective HISTORY OF PRESENT ILLNESS: Ru Mcgrath is a 74-y.o. male. HPI Sick since last Tuesday started with congestion, then both ears and nose hurting , a lot of runny nose, sore throat. Having trouble drinking water because it hurts to swallow, has to take a lot of little sips. Coughed a bit yesterday and this morning but not lasting long. Not productive. Not feelingany symptoms in chest. Not checking his temp at home, here 100.8. When laying down he feels mucus building up in his throat. Hot/cold chills. Malaise fatigue. Still urinating per his norm. +Flu vaccine this year, +pneumonia vaccine. No sick contacts but does ride the city bus and feels he is getting sick more frequently since he started taking the bus. Past Medical History: Diagnosis Date ? Allergic rhinitis 12/08/2007 ? BPH (benign prostatic hypertrophy) 12/08/2007 ? Cervical disc disorder with radiculopathy 12/08/2007 ? Chronic constipation 12/08/2007 ? CTS (carpal tunnel syndrome) 12/08/2007 S/P release surgery, 1989 ? GERD (gastroesophageal reflux disease) 12/08/2007 ? History of Alcohol Abuse 12/08/2007 ? History of CAD (Coronary Artery Disease) 12/08/2007 Thallium stress test in the s showed scarring, no ischemia. ? History of Dupuytren Contracture, on Right 12/08/2007 ? Hypertension 12/08/2007 With left ventricular hypertrophy. ? Non-cardiac chest pain 12/08/2007 Nuclear scan in 1999, negative ? Obesity (BMI 30.0-39.9) 12/08/2007 06/27/2006, BMI: 37.34 ? Personal history of colonic polyps 12/08/2007 Last colonoscopy, 06/24/2005, Dr. Landrum, four adenomas removed, benign. Next recommended 3(three) years. ? Prostatitis 12/08/2007 ? SPECIAL CIRCUMSTANCES 12/08/2007 N.B.--Patient does not want daughter informed of anything. Family History Problem Relation Age of Onset ? Stroke Mother ? Pulmonary Father Embolism Current Outpatient Medications Medication Sig ? Alfuzosin HCl 10 MG Oral TABLET SR 24 HR take 1 tablet by mouth once daily ? ALFUZOSIN HCL ER PO Take by mouth. ? benzonatate (TESSALON PERLES) 100 MG Oral Cap Take 1 Cap by mouth THREE TIMES DAILY. ? cimetidine (TAGAMET) 300 MG Oral Tab TAKE 1 TABLET BY MOUTH TWICE DAILY ? clotrimazole (LOTRIMIN) 1 % Apply externally Cream Apply twice daily To red spots ? clotrimazole-betamethasone (LOTRISONE) 1-0.05 % Apply externally Cream APPLY TO HEAD OF PENIS TWICE A DAY ? cyclobenzaprine (FLEXERIL) 10 MG Oral Tab Take 0.5-1 Tabs by mouth THREE TIMES DAILY NEEDED for muscle spasm. ? DOK 100 MG Oral Cap TAKE 1 CAPSULE BY MOUTH TWICE A DAY ? Doxazosin Mesylate 8 MG Oral Tab TAKE 1 TABLET BY MOUTH ONCE DAILY ? famciclovir (FAMVIR) 500 MG Oral Tab take 1 tablet by mouth three times a day if needed ? hydrocortisone (ANUSOL HC) 25 MG Rectal Suppos INSERT 1 SUPPOSITORY RECTALLY EVERY 12 HOURS ? levofloxacin (LEVAQUIN) 750 MG Oral Tab Take 1 Tab by mouth DAILY 0700 on Empty Stomach. ? meclizine (ANTIVERT) 25 MG Oral Tab TAKE 1 TABLET BY MOUTH THREE TIMES DAILY NEEDED FOR DIZZINESS OR VERTIGO ? metoprolol (LOPRESSOR) 50 MG Oral Tab take 1 tablet by mouth twice a day ? Multiple Vitamin (ONE-A-DAY MENS) Oral Tab Take 1 Each by mouth DAILY. ? Pramoxine-Zinc Oxide in MO 1-12.5 % Rectal Ointment Place 1 Appl per rectum NEEDED (use as directed). ? RA COL-RITE 100 MG Oral Cap take 1 capsule by mouth twice a day if needed ? ranitidine (ZANTAC) 150 MG Oral Tab TAKE 1 TABLET BY MOUTH TWICE DAILY ? Triamcinolone Acetonide 0.5 % Apply externally Cream 1 Appl by Apply externally route TWICE DAILY. Apply twice/ day No current facility-administered medications for this visit. Allergies Allergen Reactions ? Doxycycline MEDICAL LABORATORY SCIENTIST Reaction Severe pressure in head ? Penicillin G Potassium Social History Socioeconomic History ? Marital status: Spouse name: Not on file ? Number of children: Not on file ? Years of education: Not on file ? Highest education level: Not on file Occupational History ? Not on file Social Needs ? Financial resource strain: Not on file ? Food insecurity Worry: Not on file Inability: Not on file ? Transportation needs Medical: Not on file Non-medical: Not on file Tobacco Use ? Smoking status: Former Smoker Years: 0.00 Types: Cigarettes ? Smokeless tobacco: Never Used Substance and Sexual Activity ? Alcohol use: No Alcohol/week: 0.0 standard drinks Comment: Has a history of alcoholism ? Drug use: No ? Sexual activity: Never Lifestyle ? Physical activity Days per week: Not on file Minutes per session: Not on file ? Stress: Not on file Relationships ? Social connections Talks on phone: Not on file Gets together: Not on file Attends congregational service: Not on file Active member of club or organization: Not on file Attends meetings of clubs or organizations: Not on file Relationship status: Not on file ? Intimate partner violence Fear of current or ex partner: Not on file Emotionally abused: Not on file Physically abused: Not on file Forced sexual activity: Not on file Other Topics Concern ? Back Care Not Asked ? Bike Helmet Not Asked ? Blood Transfusions Not Asked ? Caffeine Concern Not Asked ? Exercise Yes Comment: walks daily ? Hobby Hazards Not Asked ? International Travel Not Asked ? Service Not Asked ? Occupational Exposure Not Asked ? Seat Belt Not Asked ? Self-Exams Not Asked ? Sleep Concern Not Asked ? Special Diet Not Asked ? Stress Concern Not Asked ? Weight Concern Not Asked Social History Narrative Lives in [facility] area by himself REVIEW OF SYSTEMS: Review of Systems Constitutional: Positive for chills, fever and malaise/fatigue. HENT: Positive for congestion, ear pain, sinus pain and sore throat. Respiratory: Positive for cough. Negative for sputum production and shortness of breath. Cardiovascular: Negative for chest pain, palpitations and leg swelling. Gastrointestinal: Negative for abdominal pain, nausea and vomiting. Musculoskeletal: Negative for joint pain and myalgias. Neurological: Positive for dizziness and headaches. Objective PHYSICAL EXAM: VITALS: BP 140/72 (BP Location: Left arm, Patient Position: Sitting) | Pulse 67 | Temp 100.8 F (38.2 C) (Tympanic) | Ht 6' 1" (1.854 m) | Wt 287 lb (130.2 kg) | SpO2 95% | BMI 37.87 kg/m Body mass index is 37.87 kg/m . Physical Exam Vitals signs and nursing note reviewed. Constitutional: General: He is not in acute distress. Appearance: Normal appearance. He is well-developed. He is not ill-appearing or toxic-appearing. HENT: Right Ear: Ear canal and external ear normal. A middle ear effusion is present. No mastoid tenderness. Tympanic membrane is not erythematous, retracted or bulging. Left Ear: Ear canal and external ear normal. A middle ear effusion is present. No mastoid tenderness. Tympanic membrane is not erythematous, retracted or bulging. Nose: Mucosal edema and rhinorrhea present. Rhinorrhea is purulent. Right Sinus: No maxillary sinus tenderness or frontal sinus tenderness. Left Sinus: No maxillary sinus tenderness or frontal sinus tenderness. Mouth/Throat: Lips: Wrens. Mouth: Mucous membranes are moist. Pharynx: Uvula midline. Oropharyngeal exudate (PND - thick, green) and posterior oropharyngeal erythema present. No pharyngeal swelling or uvula swelling. Tonsils: No tonsillar exudate or tonsillar abscesses. 1+ on the right. 1+ on the left. Eyes: Conjunctiva/sclera: Conjunctivae normal. Cardiovascular: Rate and Rhythm: Normal rate and regular rhythm. Heart sounds: Normal heart sounds. Pulmonary: Effort: Pulmonary effort is normal. Breath sounds: Normal breath sounds. Lymphadenopathy: Head: Right side of head: No submental, submandibular or tonsillar adenopathy. Left side of head: No submental, submandibular or tonsillar adenopathy. Cervical: No cervical adenopathy. Right cervical: No superficial cervical adenopathy. Left cervical: No superficial cervical adenopathy. Upper Body: Right upper body: No supraclavicular adenopathy. Left upper body: No supraclavicular adenopathy. Neurological: Mental Status: He is alert. Psychiatric: Behavior: Behavior is cooperative. ASSESSMENT / IMPRESSION: ICD-9-CM ICD-10-CM 1. Acute bacterial rhinosinusitis 461.9 J01.90 levofloxacin (LEVAQUIN) 750 MG Oral Tab B96.89 FLU A/FLU B/RSV PCR ASSAY (TESTED AT [facility] ONLY) STREP A ANTIGEN (AMB POCT) THROAT STREP SCREEN CULTURE Plan 1. Acute bacterial rhinosinusitis Allergic to PCN, has not had cephalosporins - will do respiratory fluoroquinolone, has tolerated levofloxacin in the past. -Flu swab sent -Rapid strep negative, will send for culture. ?? Levofloxacin 750 mg once daily for 7 days ?? Take Tylenol and Ibuprofen over the counter as needed for pain and symptom relief - Ibuprofen 600mg three times daily. ?? Flonase 2 sprays in each nostril daily ?? Salt water gargles, cough drops, and hot tea with lemon or honey to help soothe your throat. ?? Get plenty of rest and fluids ?? Please call or return if symptoms worsen or fail to improve - levofloxacin (LEVAQUIN) 750 MG Oral Tab; Take 1 Tab by mouth DAILY 0700 on Empty Stomach. Dispense: 7 Tab; Refill: 0 Author: Lulú Judge NP 04/24/2019 09:26 documented in this encounter Plan of Treatment Name Type Priority Associated Diagnoses Order Schedule FLU A/FLU B/RSV PCR Lab Routine Acute bacterial 1 Occurrences starting ASSAY (TESTED AT rhinosinusitis 04/24/2019 until [facility] ONLY) 10/21/2019 STREP A ANTIGEN (AMB POCT Routine Acute bacterial Ordered: 04/24/2019 POCT) rhinosinusitis THROAT STREP SCREEN Lab Routine Acute bacterial 1 Occurrences starting CULTURE rhinosinusitis 04/24/2019 until 10/21/2019 Health Maintenance Due Date Last Done Comments ZOSTER IMMUNIZATION SERIES 1997 (1 of 2) MEDICARE ANNUAL WELLNESS 03/21/2014 03/21/2013 VISIT LIPID DISORDER SCREENING 06/02/2019 06/01/2018, 11/05/2015, 03/21/2013, Additional history exists DEPRESSION SCREENING 08/15/2019 08/14/2018 FALL RISK ASSESSMENT 09/29/2019 09/28/2018, 09/28/2018 Colonoscopy 05/07/2020 05/08/2015, 08/01/2008, 08/01/2008 DTaP/Tdap/Td Vaccines (2 - 08/07/2020 08/07/2010 Tdap) PNEUMOCOCCAL 65+YRS Completed 03/08/2014, 03/21/2013 AAA SCREENING/SURVEILLANCE Completed 08/18/2017, 07/02/2016, 05/29/2013 INFLUENZA VACCINE Completed 11/09/2018, 11/14/2017, 11/05/2016, Additional history exists HEPATITIS A IMMUNIZATION Aged Out No longer eligible SERIES based on patient's age to complete this topic HPV IMMUNIZATION SERIES Aged Out No longer eligible based on patient's age to complete this topic MENINGOCOCCAL VACCINE IMM Aged Out No longer eligible based on patient's age to complete this topic documented as of this encounter Goals Goal Patient Goal Associated Recent Patient-Stated? Author Type Problems Progress Blood Pressure Blood Pressure 140/72 No [place], < 140/90 (04/24/2019 Joel Alfaro, 8:37 AM EST) Note: Hypertension Care Plan Based on the patient's clinical history and according to JNC 8 guidelines target blood pressure goal is less than 140/90. Based on the patient's last blood pressure of BP: 110/78 mmHg the patient is at at goal. As your provider, it is important that I advise you regarding: your current medications and help you with any challenges you may face taking your medications as directed (ex. instructions, cost, side effects, and interactions). lifestyle changes: exercise, weight reduction, dietary sodium reduction and medication compliance your clinical goals and how you can achieve success: weight reduction and exercise plan medication management: N/A diet only patient education/self-management tools provided: Current self-management tools adequate To successfully manage my Hypertension I will: monitor my blood pressure daily, understanding that my goal is less than 140/ 90 per my healthcare provider's recommendation. I will schedule an appointment with my provider if consistent abnormal readings greater than 160/100. take medications every day as prescribed by my healthcare provider and if unable to take them I will discuss with my provider. monitor for symptoms of chest pain, chest tightness/pressure, irregular heartbeat, persistent dizziness, radiating arm pain, and neck or jaw pain. If any of these symptoms are noticed I will seek medical attention immediately by calling 911 exercise/walk 30 minutes 6 day(s) per week. If I experience chest pain, chest tightness, or shortness of breath, I will seek medical attention immediately. follow a diet rich in fruits, vegetables, and low-fat dairy products with reduced content of saturated & total fat. I will reduce my sodium intake daily. An example is the DASH diet. To obtain more information please refer to the DASH Eating Plan listed in Educational Resources. record my blood pressure results. Lexy is safe and secure way for you to do this in your medical record online. try to obtain an ideal body weight. My recent weight was Weight: 280 lb ( 127.007 kg). My weight loss goal for my next office visit is 270 pounds . limit alcohol consumption. For men two drinks per day and women one drink per day. if currently smoking, will discuss how to quit smoking with my healthcare provider and work towards quitting. Educational Resources: National Heart, Lung, & Blood [place] http://nhlbi.nih.gov/hbp/index.html The DASH Diet Eating Plan http://www.nhlbi.nih.gov/health/health-topics/ topics/dash/ Academy of Nutrition & DIetetics http://eatright.org National Smoking Cessation Site http://smokefree.gov Blood Pressure < Blood Pressure 140/72 (04/24/2019 No Yina Worthy PA -C 150/90 8:37 AM EST) Note: This is an individualized treatment (blood pressure) goal for Ru Vasquezcheryl : Displayed above (on the left) is your goal for blood pressure control. Your most recent blood pressure is also shown above, on the right. You should try to achieve blood pressures that are lower than your goal listed above (on the left). Weight loss vs. 18 mo Lifestyle 0 (04/24/2019 8:37 AM No Yina Worthy PA-C max (lbs) >= 10 EST) Note: This is an individualized lifestyle goal for Ru Hamlinjessica: Your body mass index (BMI) is more than 30. You should lose weight. A reasonable starting goal is to lose 10 pounds. Displayed above is how many pounds you have lost thus far towards your 10 pound weight loss goal. Take all prescribed medications as Self-management No Yina Worthy PA-C directed Note: This is an individualized self-management goal for Ru Young Alcides: Please take all prescribed medications as directed. 1. Do not skip doses. If you cannot afford your medications, talk with your doctor. 2. Use a pill reminder system such as a pill box if needed. Your pharmacist can help you with this. 3. Contact your Pharmacy 5 days before your medication runs out. If you cannot take your medications for any reasons, talk with your doctor. 4. Please bring all of your medication bottles and inhalers (or a list of all your medications/inhalers) with you to every visit. Potential barriers to meeting all of your care plan goals will continue to be addressed on an ongoing basis. documented as of this encounter Results Not on filedocumented in this encounter Visit Diagnoses Diagnosis Acute bacterial rhinosinusitis documented in this encounter Insurance Payer Benefit Plan / Subscriber ID Effective Dates Phone Address Type Group MEDICARE MEDICARE PART A [id number] 2012-Present Medicare & B [facility] [id number] 2016-Present [facility] OPTIONS documented as of this encounter
[2019-05-29 10:23] VITALS: BP 160/84
== END 2019-05-29 10:30 | disposition home or self-care (01) ==
LOC: UCEAST 09:32
DX: B37.0 Candidal stomatitis (principal); N40.0 Benign prostatic hyperplasia without lower urinary tract symptoms; I10 Essential (primary) hypertension; K21.9 Gastro-esophageal reflux disease without esophagitis; Z79.899 Other long term (current) drug therapy; Z88.1 Allergy status to other antibiotic agents; Z88.0 Allergy status to penicillin
CPT/HCPCS: 99212; G0463